=== PATIENT | male | born 1950 | race Caucasian/White ===

== ENCOUNTER 2018-04-06 07:56 | Day surgery (SDC) | payer BC ==
--- NOTE | 2018-04-06 08:57 | RAD REPORT ---
EXAM DESCRIPTION: RAD - Chest Single View - 04/06/2018 8:50 am CLINICAL HISTORY: left heart cath Chest pain. COMPARISON: CHEST SINGLE VIEW dated 10/19/2013; CHEST SINGLE VIEW dated 10/19/2013 FINDINGS: Portable technique limits examination quality. The lungs are grossly clear. The heart is upper limit of normal in size. No displaced fractures. IMPRESSION: No acute intrathoracic process suspected.
[2018-04-06 08:59] LABS: Absolute Lymphocytes (CBC) 0.8 K/uL (0.7-4.9); Absolute Monocytes 0.7 K/uL (0.1-1.3); Absolute Neutrophil 4.8 K/uL (1.8-8.0); Basophils % 0.7 % (0-1.3); Hematocrit 45.6 % (39.6-49.0); Lymphocytes % 12.6 % (15.3-44.8); MPV 8.5 fL (7.6-11.3); Monocytes % 10.3 % (3.3-12.3); RBC Red Blood Cell Count 4.96 M/uL (4.33-5.43)
[2018-04-06] MEDS ORDERED: NA CHLORIDE 0.9% 500 ML ONE (09:01)
[2018-04-06 09:03] LABS: Protime INR 1.09
[2018-04-06 09:08] VITALS: O2SAT 96
[2018-04-06 09:15] LABS: Potassium 4.7 mmol/L (3.5-5.1)
[2018-04-06] MEDS ORDERED: MIDAZOLAM HCL 2 MG/2 ML INJ ONE ×2 (09:39→09:45)
[2018-04-06] MEDS ORDERED: ATROPINE SULF 1 MG/10 ML SYR IV ONE (09:39)
[2018-04-06] MEDS ORDERED: FENTANYL CITR 100 MCG/2 ML ONE (09:39)
[2018-04-06] MEDS ORDERED: NA CHLORIDE 0.9% 0 ML ONE (09:39)
[2018-04-06 10:44] VITALS: TEMP 97.5
[2018-04-06 14:22] VITALS: BP 128/75
--- NOTE | 2018-04-06 20:50 | OP ---
Surgeon: Truman Ponce MD Senior Quality Technician: Feliberto Omer. Total conscious sedation was 30 minutes. Reason For Admission: Outpatient heart catheterization and selective coronary artery angiogram. Procedure: Left heart catheterization, selective coronary artery angiogram. Indication: Atypical chest pain, history of coronary artery disease and a positive Cardiolite. History Of Present Illness: Mr. Mansfield was prepped and draped in the routine sterile fashion, given 2 mg of Versed for IV sedation. Right common femoral artery access obtained with a 6-Guamanian sheath. Angio-Seal was used to close the case. Angiography there was normal. 6-Guamanian Gracy catheters, l eft and right were used respectively to do the coronary angiography. He was found to have an ostial LAD occlusion 100%, 30 to 40% at proximal circumflex, very large dominant RCA with mild plaquing with collateral to the LAD. Complications: There were no complications. Blood Loss: 5 ml. Postoperative Diagnosis: Coronary artery disease, severe. Plan: Plan is for medical therapy. DEEDEE/BASHIR Voice ID: [id number] Report ID: [id number]
== END 2018-04-06 12:15 | disposition home or self-care (01) ==
LOC: CCL 07:56
PROC: B201YZZ Plain Radiography of Multiple Coronary Arteries using Other Contrast (ICD-10-PCS; principal; 2018-04-06)
DX: I25.10 Atherosclerotic heart disease of native coronary artery without angina pectoris (principal); I25.82 Chronic total occlusion of coronary artery; I65.22 Occlusion and stenosis of left carotid artery; I10 Essential (primary) hypertension; E11.9 Type 2 diabetes mellitus without complications; E78.6 Lipoprotein deficiency; Z88.0 Allergy status to penicillin; Z88.8 Allergy status to other drugs, medicaments and biological substances
CPT/HCPCS: 36415; 71045; 80048; 82962; 85025; 85610; 85730; 93454; C1760; C1893; J0583; J2250; J3010

== ENCOUNTER 2020-06-18 12:16 | Inpatient (IN) | payer OTHER ==
--- OUTSIDE RECORDS SUMMARY | 2020-06-18 12:19 | XMS REPORT | Continuity of Care Document ---
:1950 Author Organization [facility] Address [address] [place] [address] Care Team Providers Name Role Phone Unavailable Unavailable Unavailable Problems Condition Condition Condition Status Onset Resolution Last Treating Co mments Source Name Details Category Date Date Treatment Clinician Date Pain, Pain, Diagnosis Active [facility] joint[facility] joint, [facility] - shoulder, shoulder, Raymon ministerio left left l [facility] ent [facility] Impingemen Impingemen Diagnosis Active [facility] t syndrome t syndrome Lary kes - of left of left Memoria shoulder shoulder l [facility] ent Clinics Allergies, Adverse Reactions, Alerts Allergy Allergy Status Severity Reaction(s) Onset Inactive Treating Comm ents Source Name Type Date Date Clinician penicill Adverse Active Info Not [facility] in Reaction Available [facility] - Memoria [facility] Nembutal Adverse Active Info Not [facility] Reaction Available kes [facility] Medications Ordered Filled Start Stop Current Ordering Indication Dosage Frequency Signature Comments Components Source Medication Medication Date Date Medication? Clinician (SIG) Name Name Amlodipine Amlodipine Yes Kwabena [address] [facility] Besylate Besylate 12-16 De Leon [facility] - 00:00: Memoria 00 [facility] ent [facility] Metformin Metformin Yes Kwabena [address] [facility] HCl HCl De Leon with a [facility]ukes - meal [facility] atorvastati atorvastati Yes Kwabena [address] [facility] n n [place] Leon by mouth [facility] - at bedtime [facility] ent [facility] Aspirin Aspirin Yes Kwabena [address] [facility] Leon [facility] - [facility] Levothyroxi Levothyroxi Yes Kwabena [address] [facility] ne Sodium ne Sodium De Leon on an Lary kes - empty Memoria stomach [facility] Lisinopril Lisinopril Yes Kwabena [address] [facility] De Leon Lukes [facility] Metoprolol Metoprolol Yes Kwabena [address] Tartrate Tartrate De Leon [facility] Procedures This patient has no known procedures. Encounters Start End Encounter Admission Attending Care Care Encounter Source Date/Time Date/Time Type Type Clinicians Facility Department ID 2017-12-16 2017-12-16 Outpatient Adriana Palmer [id number] 09:30:00 09:30:00 [facility] Results This patient has no known results.
--- NOTE | 2020-06-18 13:20 | RAD REPORT ---
EXAM DESCRIPTION: RAD - Chest Single View - 06/18/2020 1:08 pm CLINICAL HISTORY: new onset a fib Chest pain. COMPARISON: Chest Single View dated 04/06/2018; CHEST SINGLE VIEW dated 10/19/2013; CHEST SINGLE VIEW dated 10/19/2013 FINDINGS: Portable technique limits examination quality. The lungs are grossly clear. The heart is upper limit of normal in size. No displaced fractures. IMPRESSION: No acute intrathoracic process suspected.
[2020-06-18 13:24] LABS: Absolute Lymphocytes (CBC) 0.9 K/uL (0.7-4.9); Basophils % 0.7 % (0-1.3); Hematocrit 46.6 % (39.6-49.0); Lymphocytes % 9.4 % (15.3-44.8); MPV 8.3 fL (7.6-11.3); RBC Red Blood Cell Count 5.07 M/uL (4.33-5.43)
[2020-06-18 13:30] LABS: Protime INR 1.1
[2020-06-18] MEDS ORDERED: ASPIRIN 81 MG CHEWABLE TABLET ONE (13:40)
[2020-06-18] MEDS ORDERED: ENOXAPARIN 80 MG/0.8 ML SQ ONE (13:40)
[2020-06-18 13:44] LABS: ALT/SGPT 50 U/L (12-78); AST/SGOT 31 U/L (15-37); Alkaline Phosphatase 109 U/L (45-117); BUN Blood Urea Nitrogen 17 mg/dL (7-18); Bicarbonate 27 mmol/L (21-32); Bilirubin Direct 0.4 mg/dL (0-0.2); Bilirubin Total 1.5 mg/dL (0.2-1.0); Glucose Level 266 mg/dL (74-106); NT PRO-BNP 708 pg/mL (<125); Potassium 4.4 mmol/L (3.5-5.1); Protein, Total 7.6 g/dL (6.4-8.2); Sodium Level 139 mmol/L (136-145); Troponin (Emerg Dept Use Only) < 0.02 ng/mL (0.0-0.045)
[2020-06-18] MEDS ORDERED: ACETAMINOPHEN 500 MG TAB PO PRN (14:05)
[2020-06-18] MEDS ORDERED: MORPHINE 4 MG/ML SYR IV PRN (14:05)
--- NOTE | 2020-06-18 15:03 | EDPHYS ---
Physician Documentation [facility] Name: Rhys Mansfield Age: 70 yrs Sex: Male : 1950 Arrival Date: 06/18/2020 Time: 12:17 Bed 3 Private MD: Kathleen Mariscal F ED Physician Ilda Weaver HPI: 06/18 13:17 This 70 yrs old Male presents to ER via Ambulatory with complaints of Chest ma2 Pain. 13:17 The patient or guardian reports chest pain that is located primarily in the substernal ma2 area. Onset: gradually, 1 day(s) ago. Associated signs and symptoms: Pertinent negatives: cough, dizziness, lower extremity pain, lower extremity swelling. Severity of pain: At its worst the pain was moderate in the emergency department the pain has improved. The patient has experienced a previous episode. Historical: - Allergies: 12:31 PENICILLINS; ca1 12:31 BARBITURATES; ca1 - PMHx: 12:31 CAD; Hyperlipidemia; Diabetes - NIDDM; Hypertension; ca1 12:31 Thyroid problem; Angina; ca1 - PSHx: 12:31 None; ca1 - Immunization history:: Client reports receiving the 2nd dose of the Covid vaccine, Date received: May 2020 Flu vaccine is up to date. - Social history:: Smoking status: Patient/guardian denies using tobacco, the patient reports quitting approximately 20 years ago, Patient/guardian denies using alcohol, street drugs, The patient lives with family, with spouse. - Family history:: not pertinent. ROS: 13:17 Constitutional: Negative for fever, chills, and weight loss. ma2 13:17 All other systems are negative. Exam: 13:17 Constitutional: This is a well developed, well nourished patient who is awake, alert, ma2 and in no acute distress. Head/Face: Normocephalic, atraumatic. Eyes: Pupils equal round and reactive to light, extra-ocular motions intact. Lids and lashes normal. Conjunctiva and sclera are non-icteric and not injected. Cornea within normal limits. Periorbital areas with no swelling, redness, or edema. ENT: Nares patent. No nasal discharge, no septal abnormalities noted. Tympanic membranes are normal and external auditory canals are clear. Oropharynx with no redness, swelling, or masses, exudates, or evidence of obstruction, uvula midline. Mucous membranes moist. Neck: Trachea midline, no thyromegaly or masses palpated, and no cervical lymphadenopathy. Supple, full range of motion without nuchal rigidity, or vertebral point tenderness. No Meningismus. Chest/axilla: Normal chest wall appearance and motion. Nontender with no deformity. No lesions are appreciated. Cardiovascular: Regular rate and rhythm with a normal S1 and S2. No gallops, murmurs, or rubs. Normal PMI, no JVD. No pulse deficits. Respiratory: Lungs have equal breath sounds bilaterally, clear to auscultation and percussion. No rales, rhonchi or wheezes noted. No increased work of breathing, no retractions or nasal flaring. Abdomen/GI: Soft, non-tender, with normal bowel sounds. No distension or tympany. No guarding or rebound. No evidence of tenderness throughout. Skin: Warm, dry with normal turgor. Normal color with no rashes, no lesions, and no evidence of cellulitis. MS/ Extremity: Pulses equal, no cyanosis. Neurovascular intact. Full, normal range of motion. Neuro: Awake and alert, GCS 15, oriented to person, place, time, and situation. Cranial nerves II-XII grossly intact. Motor strength 5/5 in all extremities. Sensory grossly intact. Cerebellar exam normal. Normal gait. Vital Signs: 12:20 BP 154 / 91; Pulse 103; Resp 19 S; Temp 97(TE); Pulse Ox 96% on R/A; Weight 102.06 kg ca1 (R); Height 5 ft. 9 in. (175.26 cm) (R); Pain 4/10; 13:29 BP 121 / 80; Pulse 95; Resp 15; Pulse Ox 95% ; Pain 5/10; jl7 14:53 BP 138 / 73; Pulse 111; Resp 17; Pulse Ox 95% ; jl7 17:05 BP 133 / 91; Pulse 135; Resp 19; Pulse Ox 95% ; Pain 0/10; jl7 17:30 Pulse 99; jl7 18:00 BP 122 / 70; Pulse 105; Resp 15; Pulse Ox 96% ; jl7 12:20 Body Mass Index 33.23 (102.06 kg, 175.26 cm) ca1 MDM: 12:49 Patient medically screened. [facility] 13:17 Differential diagnosis: esophagitis, gastritis, gastroesophageal reflux disease (GERD). [facility] HEART Score: History: Highly Suspicious (2), ECG: Non specific repolarization disturbance / LBTB / PM (1), Age: > or = 65 years (2), Risk Factors: > or = 3 Risk factors for atherosclerotic disease (2), Troponin: < or = 1 x Normal Limit (0), Total Score = 3. The patient was given aspirin in the Emergency Department. 15:02 Data reviewed: vital signs, nurses notes. Counseling: I had a detailed discussion with [facility] the patient and/or guardian regarding: the historical points, exam findings, and any diagnostic results supporting the discharge/admit diagnosis, the presence of at least one elevated blood pressure reading (>120/80) during this emergency department visit, lab results. ED course: discussed with dr. venegas. 06/18 12:55 Order name: Basic Metabolic Panel; Complete Time: 14:00 [facility] 06/18 12:55 Order name: CBC with Diff; Complete Time: 14:00 [facility] 06/18 12:55 Order name: LFT's; Complete Time: 14:00 [facility] 06/18 12:55 Order name: Magnesium; Complete Time: 14:00 [facility] 06/18 12:55 Order name: NT PRO-BNP; Complete Time: 14:00 [facility] 06/18 12:55 Order name: PT-INR; Complete Time: 14:00 [facility] 06/18 12:55 Order name: Troponin (emerg Dept Use Only); Complete Time: 14:00 [facility] 06/18 14:09 Order name: Basic Metabolic Panel [facility] 06/18 14:09 Order name: PTT, Activated Partial Thromb [facility] 06/18 14:09 Order name: Creatine Phosphokinase [facility] 06/18 14:09 Order name: Creatine Phosphokinase [facility] 06/18 14:09 Order name: Creatine Phosphokinase [facility] 06/18 14:10 Order name: Creatine Phosphokinase [facility] 06/18 14:10 Order name: Lipid Profile [facility] 06/18 12:34 Order name: EKG; Complete Time: 12:35 [facility] 06/18 12:55 Order name: XRAY Chest (1 view); Complete Time: 14:00 [facility] 06/18 14:09 Order name: CONS Physician Consult [facility] 06/18 14:09 Order name: Echo with Doppler [facility] 06/18 14:10 Order name: Lipid Profile [facility] 06/18 14:10 Order name: Troponin I [facility] 06/18 14:10 Order name: Troponin I [facility] 06/18 14:10 Order name: Troponin I [facility] 06/18 14:10 Order name: Troponin I [facility] 06/18 14:10 Order name: CBC with Automated Diff [facility] 06/18 14:15 Order name: COVID-19 : Document "Date of Symptom Onset" if Symptomatic. bd 06/18 15:12 Order name: CORONAVIRUS [facility] 06/18 16:04 Order name: SARS-COV-[address] [facility] 06/18 12:34 Order name: EKG - Nurse/Tech; Complete Time: 12:49 [facility] 06/18 12:55 Order name: Cardiac monitoring; Complete Time: 13:14 [facility] 06/18 12:55 Order name: IV Saline Lock; Complete Time: 13:14 [facility] 06/18 12:55 Order name: Labs collected and sent; Complete Time: 13:14 [facility] 06/18 12:55 Order name: O2 Per Protocol; Complete Time: 13:14 [facility] 06/18 12:55 Order name: O2 Sat Monitoring; Complete Time: 13:14 [facility] 06/18 14:09 Order name: Heart Healthy [facility] Administered Medications: 13:27 Drug: Aspirin Chewable Tablet 324 mg Route: PO; jl7 14:53 Follow up: Response: No adverse reaction jl7 13:27 Drug: Lovenox (enoxaparin) 80 mg Route: Sub-Q; Site: abdomen; jl7 14:00 Follow up: Response: No adverse reaction jl7 17:08 Drug: Metoprolol 5 mg Route: IVP; Site: right wrist; jl7 17:30 Follow up: Pulse 99 bpm; Response: No adverse reaction; Cardiac rhythm changed jl7 Disposition: 06/18/20 15:03 Hospitalization ordered by Kathleen Mariscal for Observation. Preliminary diagnosis is Other chest pain. - Bed requested for Telemetry/MedSurg (observation). - Status is Observation. jl7 - Condition is Stable. - Problem is new. - Symptoms are unchanged. Signatures: Dispatcher [employer] [facility] Neha Pack RN RN dw Leal, Jahala, RN RN jl7 Ilda Weaver MD MD ma2 Na Thomas RN RN ca1 Corrections: (The following items were deleted from the chart) 17:48 15:03 Hospitalization Ordered by Kathleen Mariscal MD for Observation. Preliminary dw diagnosis is Other chest pain. Bed requested for Telemetry/MedSurg (observation). Status is Observation. Condition is Stable. Problem is new. Symptoms are unchanged. ne2 18:49 17:48 06/18/2020 15:03 Hospitalization Ordered by Kathleen Mariscal MD for Observation. jl7 Preliminary diagnosis is Other chest pain. Bed requested for Telemetry/MedSurg (observation). Status is Observation. Condition is Stable. Problem is new. Symptoms are unchanged. dw
--- NOTE | 2020-06-18 15:03 | ER ---
Nurse's Notes 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 Reports dizziness and ca1 lightheadedness with chest pain. Reports pain with breathing in. Reports HX of CAD. Coronavirus screen: Client denies travel out of the [place] in the last 14 days. At this time, the client does not indicate any symptoms associated with coronavirus-19. Ebola Screen: Patient negative for fever greater than or equal to 101.5 degrees Fahrenheit, and additional compatible Ebola Virus Disease symptoms Patient denies exposure to infectious person. Patient denies travel to an Ebola-affected area in the 21 days before illness onset. No symptoms or risks identified at this time. Initial Sepsis Screen: Does the patient meet any 2 criteria? No. Patient's initial sepsis screen is negative. Does the patient have a suspected source of infection? No. Patient's initial sepsis screen is negative. Risk Assessment: Do you want to hurt yourself or someone else? Patient reports no desire to harm self or others. Onset of symptoms was June 18, 2020. 12:20 Acuity: DL 3 ca1 12:44 Acuity: DL 2 ld1 Historical: - Allergies: 12:31 PENICILLINS; ca1 12:31 BARBITURATES; ca1 - PMHx: 12:31 CAD; Hyperlipidemia; Diabetes - NIDDM; Hypertension; ca1 12:31 Thyroid problem; Angina; ca1 - PSHx: 12:31 None; ca1 - Immunization history:: Client reports receiving the 2nd dose of the Covid vaccine, Date received: May 2020 Flu vaccine is up to date. - Social history:: Smoking status: Patient/guardian denies using tobacco, the patient reports quitting approximately 20 years ago, Patient/guardian denies using alcohol, street drugs, The patient lives with family, with spouse. - Family history:: not pertinent. Screenin:29 Abuse screen: Denies threats or abuse. Denies injuries from another. Nutritional jl7 screening: No deficits noted. Tuberculosis screening: No symptoms or risk factors identified. Fall Risk IV access (20 points). Total Kent Fall Scale indicates No Risk (0-24 pts). Assessment: 13:00 General: Appears in no apparent distress. uncomfortable, Behavior is calm, cooperative, jl7 appropriate for age. Pain: Complains of pain in anterior aspect of left upper chest and mid-sternal area Pain does not radiate. Pain currently is 5 out of 10 on a pain scale. Quality of pain is described as pressure, Pain began 1 hour ago. Is continuous. Neuro: Level of Consciousness is awake, alert, obeys commands, Oriented to person, place, time, situation. Cardiovascular: Patient's skin is warm and dry. Respiratory: Airway is patent Respiratory effort is even, unlabored, Respiratory pattern is regular, symmetrical. Derm: Skin is pink, warm \\T\\ dry. 14:00 Reassessment: Patient appears in no apparent distress at this time. No changes from 7 previously documented assessment. Patient and/or family updated on plan of care and expected duration. Pain level reassessed. Patient is alert, oriented x 3, equal unlabored respirations, skin warm/dry/pink. 15:00 Reassessment: Patient appears in no apparent distress at this time. No changes from 7 previously documented assessment. Patient and/or family updated on plan of care and expected duration. Pain level reassessed. Patient is alert, oriented x 3, equal unlabored respirations, skin warm/dry/pink. 16:30 Reassessment: Dr. Mariscal at bedside. [facility] 17:05 Reassessment: [facility] notified of pt HR, 135, A.Fib on the monitor, VO for 5mg Metoprolol 7 IVP x 1, medicated as ordered. 18:00 Reassessment: HR lowered. 7 Vital Signs: 12:20 BP 154 / 91; Pulse 103; Resp 19 S; Temp 97(TE); Pulse Ox 96% on R/A; Weight 102.06 kg ca1 (R); Height 5 ft. 9 in. (175.26 cm) (R); Pain 4/10; 13:29 BP 121 / 80; Pulse 95; Resp 15; Pulse Ox 95% ; Pain 5/10; jl7 14:53 BP 138 / 73; Pulse 111; Resp 17; Pulse Ox 95% ; jl7 17:05 BP 133 / 91; Pulse 135; Resp 19; Pulse Ox 95% ; Pain 0/10; jl7 17:30 Pulse 99; jl7 18:00 BP 122 / 70; Pulse 105; Resp 15; Pulse Ox 96% ; jl7 12:20 Body Mass Index 33.23 (102.06 kg, 175.26 cm) ca1 ED Course: 12:17 Patient arrived in ED. am2 12:17 Kathleen Mariscal MD is Private Physician. am2 12:29 Triage completed. ca1 12:31 Arm band placed on right wrist. ca1 12:44 Neida Melton, RN is Primary Nurse. ld1 12:44 Primary Nurse role handed off by Neida Melton, MIC jl7 12:44 Mike Boyce, MIC is Primary Nurse. jl7 12:49 Ilda Weaver MD is Attending Physician. ma2 13:00 Patient has correct armband on for positive identification. Placed in gown. Bed in low jl7 position. Call light in reach. Side rails up X 1. traffic monitor specialist on. Pulse ox on. NIBP on. 13:00 Initial lab(s) drawn, by me, sent to lab. Inserted saline lock: 20 gauge in right jl7 wrist, using aseptic technique. Blood collected. Patient maintains SpO2 saturation greater than 95% on room air. 13:07 XRAY Chest (1 view) In Process Unspecified. EDMS 13:32 EKG done, by radioisotope technician. reviewed by Ilda Weaver MD. em1 14:44 COVID swab sent to lab. jl7 14:53 No provider procedures requiring assistance completed. Patient admitted, IV remains in jl7 place. intact, No redness/swelling at site. 15:00 COVID-19 : Document "Date of Symptom Onset" if Symptomatic. Sent. em1 15:03 Kathleen Mariscal MD is Hospitalizing Provider. ma2 17:13 Awaiting bed assignment. jl7 Administered Medications: 13:27 Drug: Aspirin Chewable Tablet 324 mg Route: PO; jl7 14:53 Follow up: Response: No adverse reaction jl7 13:27 Drug: Lovenox (enoxaparin) 80 mg Route: Sub-Q; Site: abdomen; jl7 14:00 Follow up: Response: No adverse reaction jl7 17:08 Drug: Metoprolol 5 mg Route: IVP; Site: right wrist; jl7 17:30 Follow up: Pulse 99 bpm; Response: No adverse reaction; Cardiac rhythm changed jl7 Outcome: 15:03 Decision to Hospitalize by Provider. ma2 18:47 Admitted to Tele accompanied by tech, via wheelchair, room 222, with chart, Report jl7 called to MIC NOLASCO 18:47 Condition: stable 18:47 Discharge instructions given to patient, Instructed on the need for admit, Demonstrated understanding of instructions. 18:49 Patient left the ED. jl7 Signatures: Dispatcher [employer] Parish Bansal em1 Mike Boyce RN RN jl7 Angeles Valencia Mohammad, MD MD ma2 Na Thomas RN RN ca1 Neida Melton RN RN ld1
[2020-06-18] MEDS: INSULIN -REGULAR HUMAN 50 UNIT/0.5 ML ML SQ SCH ×2 (16:30→21:07)
[2020-06-18] MEDS ORDERED: METOPROLOL TARTRATE 5 MG/5 ML INJ IV ONE (17:23)
[2020-06-18] MEDS: ENOXAPARIN 80 MG/0.8 ML SQ SCH (21:08)
[2020-06-18 21:16] LABS: Creatine Phosphokinase 54 U/L (39-308); Troponin I < 0.02 ng/mL (0.0-0.045)
[2020-06-19 00:49] VITALS: BMI 33.2
[2020-06-19 06:13] LABS: Basophils % 0.5 % (0-1.3); Hematocrit 43.6 % (39.6-49.0); Lymphocytes % 10.1 % (15.3-44.8); MPV 8.2 fL (7.6-11.3); RBC Red Blood Cell Count 4.77 M/uL (4.33-5.43)
[2020-06-19 06:28] LABS: Potassium 4.2 mmol/L (3.5-5.1)
[2020-06-19 07:04] LABS: Creatine Phosphokinase 43 U/L (39-308); Troponin I < 0.02 ng/mL (0.0-0.045)
[2020-06-19] MEDS: INSULIN -REGULAR HUMAN 50 UNIT/0.5 ML ML SQ SCH ×4 (07:30→20:37)
[2020-06-19] MEDS: ASPIRIN EC 81 MG TAB PO SCH (09:29)
[2020-06-19] MEDS: ENOXAPARIN 80 MG/0.8 ML SQ SCH ×2 (09:29→20:37)
[2020-06-19] MEDS ORDERED: DIGOXIN 0.25 MG TABLET PO ONE (11:03)
--- NOTE | 2020-06-19 12:55 | EKG ---
Test Date: 2020-06-18 Test Time: 12:39:44 Dock Clerk: NINFA MEASUREMENT RESULTS: Intervals: Rate: 94 CT: QRSD: 98 QT: 352 QTc: 440 [place]: P: CT: QRS: 19 T: 6 INTERPRETIVE STATEMENTS: Atrial fibrillation Abnormal ECG Compared to ECG 10/19/2013 07:04:25 Sinus rhythm no longer present Electronically Signed On 06-19-20 12:52:48 CDT by Truman Ponce
[2020-06-19] MEDS: METFORMIN HCL 500 MG TAB PO SCH (13:00)
--- NOTE | 2020-06-19 13:39 | ECHO ---
HEIGHT: 5 ft 9 in WEIGHT: 225 lb 0 oz DATE OF STUDY: 06/19/[address]: Ilda Weaver MD 2-DIMENSIONAL: YES M.MODE: YES DOPPLER: YES COLOR FLOW: YES TDS: PORTABLE: DEFINITY: BUBBLE STUDY: DIAGNOSIS: CHEST PAIN CARDIAC HISTORY: CATHERIZATION: NO SURGERY: NO PROSTHETIC VALVE: NO PACEMAKER: NO MEASUREMENTS (cm) DIASTOLIC (NORMALS) SYSTOLIC (NORMALS) IVSd 1.0 (0.6-1.2) LA Diam 3.5 (1.9-4.0) LVEF 51% LVIDd 4.7 (3.5-5.7) LVIDs 3.5 (2.0-3.5) %FS 26% LVPWd 1.0 (0.6-1.2) Ao Diam 3.4 (2.0-3.7) 2 DIMENSIONAL ASSESSMENT: RIGHT ATRIUM: NORMAL LEFT ATRIUM: NORMAL RIGHT VENTRICLE: NORMAL LEFT VENTRICLE: NORMAL TRICUSPID VALVE: NORMAL MITRAL VALVE: NORMAL PULMONIC VALVE: NORMAL AORTIC VALVE: NORMAL PERICARDIAL EFFUSION: NONE AORTIC ROOT: NORMAL LEFT VENTRICULAR WALL MOTION: NORMAL EJECTION FRACTION DOPPLER/COLOR FLOW: NORMAL COMMENTS: ATRIAL FIBRILLATION. NORMAL OVERALL EJECTION FRACTION. NORMAL LEFT ATRIAL SIZE. NO THROMBUS. TECHNOLOGIST: CAITLIN ANGEL
[2020-06-19 14:19] LABS: Creatine Phosphokinase 53 U/L (39-308); Troponin I < 0.02 ng/mL (0.0-0.045)
--- NOTE | 2020-06-19 15:22 | SS ---
History Of Present Illness: The patient is a 70-year-old male with history of multiple medical probl ems including coronary artery disease and diabetes. Have been working outdoors, lifting and pushing heavy objects for a whole day and then after that while he was sitting in the chair, he started feeli ng the chest pain pointing to his sternal area and he relates that this chest pain is like a dull ach e and specially increased with taking a deep breath. He came to the emergency room because of his hi story of coronary artery disease and his high risk for that, he was admitted for observation. The pa inga had no palpitation. No nausea, no vomiting, no increased work of breath and no other complaint s. Review of Systems: Cardiovascular: As mentioned. No palpitation. No dizziness. No other complaints. Respiratory: No complaints. Genitourinary: No complaint. Neurological: No complaint. Skeletomuscular: No complaint. Past Medical History: 1.Coronary artery disease. 2.Hyperlipidemia. 3.Type 2 diabetes. 4.Hypertension. Social History: Denies smoking, alcohol, or drug abuse history. Family History: Noncontributing. Medications: Include amlodipine 10 mg p.o. daily, aspirin 81 mg p.o. daily, Lipitor 40 mg p.o. daily , levothyroxine 25 mcg p.o. daily, metformin 1000 mg p.o. b.i.d. and metoprolol 25 mg p.o. b.i.d. Allergies: BARBITURATES AND PENICILLIN. Physical Examination: General: The patient is sitting, in no acute distress. Vital Signs: Blood pressure 147/87, pulse is 130, temperature 97.7. Heart: Tachycardic. Regular rate. Chest: Clear to auscultation. Abdomen: Soft, nontender. No hepatosplenomegaly. Bowel sounds are normoactive. Extremities: No edema. No cyanosis. Peripheral pulses are felt. Neurologic: Alert, oriented, nonfocal. Grossly intact. Chest wall: Showed no tenderness. Diagnostic Studies: Chest x-ray, no acute pathology is. EKG reported to me by ER physician, no acut e ischemic changes. CBC nonrevealing. BUN 15, creatinine 0.91, GFR 83. Blood sugar fingersticks, 2 77 and 177. Troponin less than 0.02. COVID test negative. Assessment And Plan: Substernal chest pain in the patient with a high risk for coronary artery disea se, being admitted, monitored and put him on his home medications, on his aspirin and on Lovenox. Ca rdiology has been asked to see the patient and evaluate for any further cardiac intervention. We als o put him on his home medicines, follow his blood sugar fingersticks, put him on sliding scale. If i t is okay with Cardiology, then we are going to go ahead and if there is no other intervention inpati ent for this gentleman, then we will go ahead and discharge him with Cardiology recommendations on hi s medications and if there is any outpatient further workup. I think that the patient's chest pain i s more related to his skeletomuscular system, especially he sees that with taking deep breaths. Jose ochondritis will also be involved in that. Look orders for details. MFS/MODL Voice ID: [id number] Report ID: [id number]
[2020-06-19] MEDS: SOTALOL HCL 80 MG TAB PO SCH (17:56)
[2020-06-19] MEDS: METOPROLOL TAR 25 MG TAB PO SCH (20:37)
[2020-06-19] MEDS ORDERED: ATORVASTATIN 40 MG TAB PO SCH (21:00)
[2020-06-20 01:20] VITALS: O2SAT 95
[2020-06-20] MEDS: SOTALOL HCL 80 MG TAB PO SCH ×2 (06:18→16:35)
[2020-06-20] MEDS ORDERED: LEVOTHYROXINE SOD 0.025 MG TAB PO SCH (06:30)
[2020-06-20] MEDS: INSULIN -REGULAR HUMAN 50 UNIT/0.5 ML ML SQ SCH ×2 (07:30→11:30)
[2020-06-20] MEDS: METFORMIN HCL 500 MG TAB PO SCH ×2 (08:41→16:35)
[2020-06-20] MEDS: ASPIRIN EC 81 MG TAB PO SCH (08:41)
[2020-06-20] MEDS: METOPROLOL TAR 25 MG TAB PO SCH (08:41)
[2020-06-20] MEDS: ENOXAPARIN 80 MG/0.8 ML SQ SCH (08:42)
[2020-06-20] MEDS ORDERED: ASPIRIN EC 81 MG TAB PO SCH (09:00)
[2020-06-20] MEDS ORDERED: AMLODIPINE 10 MG TAB PO SCH (09:00)
[2020-06-20 13:13] VITALS: BP 138/94; TEMP 97.8
--- NOTE | 2020-06-20 17:11 | PN ---
Subjective: The patient has no new complaints. No chest pain. No increased shortness of breath. Objective: Vital Signs: Blood pressure 138/94, pulse 83, temperature 97.8. Heart: Regular rate and rhythm. Chest: Clear to auscultation. Abdomen: Soft, benign. Neurological: Grossly intact. Laboratory Data: The patient's EKG showed atrial fibrillation. His echo showed atrial fibrillation with normal left ventricular ejection fraction. Assessment And Plan: Atrial fibrillation, new diagnosis for this patient. He is still in atrial fib rillation. He was put on Betapace by Cardiology. Plan is to change into sinus rhythm with chemicals or if needed by cardioversion. Meanwhile, continue current treatment. The patient is on Lovenox al so, and we will continue to monitor his blood sugar fingersticks and put him on sliding scale and alma p that. Look orders for details. MFS/MODL Voice ID: [id number] Report ID: [id number]
== END 2020-06-20 17:20 | disposition home or self-care (01) | DRG 310 ==
LOC: ER 12:16 → ERHOLD 14:05 → 2ND 18:17 → OBSVTOIN 06-20 07:49
PROVIDERS: ADMIT Internal Medicine; ATTEND Internal Medicine
DX: I48.91 Unspecified atrial fibrillation (principal); I10 Essential (primary) hypertension; E78.5 Hyperlipidemia, unspecified; I25.10 Atherosclerotic heart disease of native coronary artery without angina pectoris; E11.9 Type 2 diabetes mellitus without complications; Z79.82 Long term (current) use of aspirin; Z79.890 Hormone replacement therapy; Z79.84 Long term (current) use of oral hypoglycemic drugs; Z79.899 Other long term (current) drug therapy; Z88.8 Allergy status to other drugs, medicaments and biological substances; Z88.0 Allergy status to penicillin; Z87.891 Personal history of nicotine dependence; Z20.822 Contact with and (suspected) exposure to COVID-19
CPT/HCPCS: 36415; 71045; 80048; 80061; 80076; 82550; 82947; 83735; 83880; 84484; 85025; 85610; 85730; 93005; 93306; 96372; 96374; 99285; G0378; U0003

== ENCOUNTER 2022-02-09 13:48 | Emergency (ER) | payer OTHER ==
[2022-02-09] MEDS ORDERED: SUCCINYLCHOLINE 20 MG/ML (10 ML) IV ONE (13:49)
[2022-02-09] MEDS ORDERED: ETOMIDATE 20 MG/10 ML VIAL IV ONE (13:49)
--- OUTSIDE RECORDS SUMMARY | 2022-02-09 13:51 | XMS REPORT | Continuity of Care Document ---
:1950 Author Organization [facility] t Address [address] [place] [address] Care Team Providers Name Role Phone Unavailable Unavailable Unavailable Problems Condition Condition Condition Status Onset Resolution Last Treating Co mments Source Name Details Category Date Date Treatment Clinician Date Pain, Pain, Diagnosis Active Common joint, joint, Spirit shoulder, shoulder, - CH I left left [facility] Impingemen Impingemen Diagnosis Active Common t syndrome t syndrome Sp rona of left of left - [facility] shoulder shoulder [facility] Allergies, Adverse Reactions, Alerts Allergy Allergy Status Severity Reaction(s) Onset Inactive Treating Comm ents Source Name Type Date Date Clinician penicill Adverse Active Info Not Commo n in Reaction Available [facility] Nembutal Adverse Active Info Not Commo n Reaction Available [facility] Medications Ordered Filled Start Stop Current Ordering Indication Dosage Frequency Signature Comments Components Source Medication Medication Date Date Medication? Clinician (SIG) Name Name Amlodipine Amlodipine Yes Kwabena 1 tablet Common Besylate Besylate 12-16 [place] Spiri t 00:00: - [facility]I 00 [facility] Metformin Metformin Yes Kwabena 1 tablet Common HCl HCl [place] with a Spirit meal [facility] atorvastati atorvastati Yes Kwabena 1 tablet Common n n [place] by mouth Spirit at bedtime [facility] Aspirin Aspirin Yes Kwabena [address] [facility] Levothyroxi Levothyroxi Yes Kwabena 1 tablet Common ne Sodium ne Sodium De Leon on an Sp rona empty - [facility]I stomach in [facility] Lisinopril Lisinopril Yes Kwabena 1 tablet Common De Leon [facility] Metoprolol Metoprolol Yes Kwabena 5 ml C ommon Tartrate Tartrate [facility] Procedures This patient has no known procedures. Encounters Start End Encounter Admission Attending Care Care Encounter Source Date/Time Date/Time Type Type Clinicians Facility Department ID 2017-12-16 2017-12-16 Outpatient Adriana Palmer [id number] Common 09:30:00 09:30:00 [facility] Results This patient has no known results.
[2022-02-09] MEDS ORDERED: MIDAZOLAM HCL 2 MG/2 ML INJ ONE ×3 (14:10→15:17)
[2022-02-09 14:34] LABS: Absolute Lymphocytes (CBC) 1.3 K/uL (0.7-4.9); Hematocrit 44.5 % (39.6-49.0); Lymphocytes % 13.2 % (15.3-44.8); MCV 99.6 fL (80-100); MPV 7.8 fL (7.6-11.3); RBC Red Blood Cell Count 4.47 M/uL (4.33-5.43)
[2022-02-09] MEDS ORDERED: propofoL 1,000 MG/100 ML VIAL IV ONE ×2 (14:39→17:31)
[2022-02-09 14:40] LABS: Protime INR 2.95
[2022-02-09 15:01] LABS: Urine Blood Trace-intact (Negative); Urine Glucose Negative (Negative); Urine Protein 2+ (Negative); Urine Specific Gravity >=1.030 (1.005-1.030)
[2022-02-09 15:30] LABS: Urine Mucus Slight /HPF (None Seen); Urine RBC <5 /HPF (None Seen)
--- NOTE | 2022-02-09 15:37 | ER ---
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 13:57 Coronavirus screen: Vaccine status: Patient reports receiving the 2nd dose of the covid ph vaccine. Ebola Screen: No symptoms or risks identified at this time. Risk Assessment: Do you want to hurt yourself or someone else? Patient reports no desire to harm self or others. Onset of symptoms was February 09, 2022. 13:57 Method Of Arrival: Wheelchair ph 13:57 Acuity: DL 1 ph 16:59 Initial Sepsis Screen: Does the patient meet any 2 criteria? No. Patient's initial jd3 sepsis screen is negative. Does the patient have a suspected source of infection? No. Patient's initial sepsis screen is negative. 16:59 Care prior to arrival: None. Compressions began at 13:57. jd3 Triage Assessment: 13:55 General: Appears distressed, Behavior is cooperative. Pain: Denies pain. Respiratory: ph Reports shortness of breath. Derm: Skin is diaphoretic, Skin is dusky, pale. Historical: - Allergies: 14:09 BARBITURATES; ph 14:09 PENICILLINS; ph - Home Meds: 16:50 amlodipine 10 mg tab 1 tab once daily [Active]; levothyroxine 25 mcg cap 1 cap every jd3 other day [Active]; glimepiride 1 mg Oral tab 1 tab once daily [Active]; atorvastatin 40 mg oral tab 1 tab once daily [Active]; metformin 1,000 mg Oral tab 1 tab 2 times per day [Active]; sotalol 120 mg Oral tab 1 tab 2 times per day [Active]; Xarelto 20 mg oral tab 1 tab once daily [Active]; aspirin 81 mg Oral cap 1 cap once daily [Active]; Flonase Nasal [Active]; Claritin Oral [Active]; - PMHx: 14:09 Angina; CAD; Diabetes - NIDDM; Hyperlipidemia; Hypertension; Thyroid problem; Atrial ph fibrillation; - Immunization history:: Adult Immunizations unknown. - Social history:: Smoking status: unknown. Screenin:59 Abuse screen: Denies threats or abuse. Nutritional screening: No deficits noted. jd3 Tuberculosis screening: No symptoms or risk factors identified. Fall Risk IV access (20 points). Ambulatory Aid- None/Bed Rest/Nurse Assist (0 pts). Gait- Normal/Bed Rest/Wheelchair (0 pts) Mental Status- Oriented to own ability (0 pts). Total Kent Fall Scale indicates No Risk (0-24 pts). Assessment: 14:00 General: Appears distressed, Behavior is restless. Pain: Unable to use pain scale. jd3 Patient is unresponsive. Neuro: Level of Consciousness is confused, lethargic, Oriented to none. Cardiovascular: Heart tones present Rhythm is atrial fibrillation with rapid ventricular response. Respiratory: Respiratory effort is labored, gasping, weak, Breath sounds are diminished bilaterally. GI: No signs and/or symptoms were reported involving the gastrointestinal system. : No signs and/or symptoms were reported regarding the genitourinary system. EENT: No signs and/or symptoms were reported regarding the EENT system. Derm: Skin is intact, Skin is clammy, diaphoretic, Skin is dusky, pale, Skin temperature is cool. Musculoskeletal: No signs and/or symptoms reported regarding the musculoskeletal system. 14:25 Reassessment: states that patient has been c/o shortness of breath since ss yesterday, but became much worse today. 14:25 CPR assessment: Ambu ventilation. jd3 15:00 General: Appears comfortable, Behavior is orally intubated. Pain: Unable to use pain jd3 scale. Patient is intubated. Neuro: Owens Agitation-Sedation Scale (RASS): -4 Deep sedation Level of Consciousness is intubated. Oriented to none. Cardiovascular: Heart tones present Capillary refill < 3 seconds Patient's skin is warm and dry. Rhythm is atrial fibrillation. Respiratory: Airway via oral intubation Respiratory effort is relaxed, Breath sounds are diminished bilaterally. Breath sounds with wheezes bilaterally. GI: No signs and/or symptoms were reported involving the gastrointestinal system. : No signs and/or symptoms were reported regarding the genitourinary system. EENT: No signs and/or symptoms were reported regarding the EENT system. Derm: Skin is intact, Skin is dry, Skin is normal, Skin temperature is warm. Musculoskeletal: No signs and/or symptoms reported regarding the musculoskeletal system. 15:30 Reassessment: Patient appears in no apparent distress at this time. No changes from jd3 previously documented assessment. Patient and/or family updated on plan of care and expected duration. Pain level reassessed. 16:00 Reassessment: Patient appears in no apparent distress at this time. No changes from jd3 previously documented assessment. Patient and/or family updated on plan of care and expected duration. Pain level reassessed. 16:30 Reassessment: Patient appears in no apparent distress at this time. No changes from jd3 previously documented assessment. Patient and/or family updated on plan of care and expected duration. Pain level reassessed. 17:00 Cardiac rhythm is A-fib. jd3 17:00 Reassessment: Patient appears in no apparent distress at this time. No changes from jd3 previously documented assessment. Patient and/or family updated on plan of care and expected duration. Pain level reassessed. 17:15 Reassessment: Patient appears in no apparent distress at this time. No changes from jd3 previously documented assessment. Patient and/or family updated on plan of care and expected duration. Pain level reassessed. 17:30 Reassessment: Patient appears in no apparent distress at this time. No changes from jd3 previously documented assessment. Patient and/or family updated on plan of care and expected duration. Pain level reassessed. 17:45 Reassessment: Patient appears in no apparent distress at this time. No changes from jd3 previously documented assessment. Patient and/or family updated on plan of care and expected duration. Pain level reassessed. 18:00 Reassessment: Patient appears in no apparent distress at this time. No changes from jd3 previously documented assessment. Patient and/or family updated on plan of care and expected duration. Pain level reassessed. report given to [facility]. 18:21 Reassessment: report given to Risa HAILE at [facility]. jd3 Vital Signs: 14:10 BP 180 / 122; Pulse 135; Pulse Ox 51% on Non-rebreather mask; ss 14:12 BP 134 / 85; Pulse 121; Pulse Ox 58% on Non-rebreather mask; ss 14:15 BP 145 / 93; Pulse 119; Pulse Ox 100% on ETT ambu; ss 14:19 BP 118 / 84; Pulse 114; ss 15:15 BP 121 / 77; Pulse 102; Resp 22 A; Pulse Ox 97% on ETT vent; jd3 15:30 BP 110 / 66; Pulse 100; Resp 22 A; Pulse Ox 98% on ETT vent; jd3 15:47 BP 125 / 82; Pulse 102; Resp 15 A; Temp 97.5(A); Pulse Ox 98% on ETT vent; Weight jd3 136.08 kg (R); 16:00 BP 109 / 71; Pulse 101; Resp 22 A; Pulse Ox 98% on ETT vent; jd3 16:15 BP 117 / 81; Pulse 97; Resp 22; Pulse Ox 99% on ETT vent; jd3 16:30 BP 112 / 80; Pulse 94; Resp 22; Pulse Ox 99% on ETT vent; jd3 16:45 BP 114 / 77; Pulse 99; Resp 22; Pulse Ox 100% on ETT vent; jd3 17:00 BP 112 / 67; Pulse 94; Resp 22; Pulse Ox 100% on ETT vent; jd3 17:15 BP 109 / 64; Pulse 89; Resp 20; Pulse Ox 100% on ETT vent; jd3 17:30 BP 129 / 64; Pulse 91; Resp 18; Pulse Ox 100% on ETT vent; jd3 17:45 BP 123 / 77; Pulse 89; Resp 19; Pulse Ox 100% on ETT vent; jd3 ED Course: 13:57 Patient arrived in ED. eb 14:05 Inserted saline lock: 18 gauge in left EJ, using aseptic technique. ,using aseptic ss technique. Insertion by Dr. Emery Diehl. 14:08 Inserted saline lock: 20 gauge in right hand, using aseptic technique. ss 14:09 Triage completed. ph 14:09 Arm band placed on Patient placed in an exam room, on a stretcher, on oxygen, on ph phototypesetting equipment monitor, on pulse oximetry. 14:10 Inserted saline lock: 18 gauge in left antecubital area, using aseptic technique. Blood ss collected. 14:12 Assisted provider with intubation using 7.5 mm ETT via oral route. Set up intubation ss tray. Intubated by Elton Diehl MD Placement verified by CO2 detector w/ + color change, auscultating bilateral breath sounds, Patient tolerated sedated. 14:15 Veronica cath inserted, using sterile technique, 16 Fr.. ss 14:16 Elton Diehl MD is Attending Physician. [facility] 14:41 Assisted provider with central line placement. Set up central line tray. Triple lumen ss line placed in right femoral. Line placed by Elton Diehl MD Placement verified by blood return, Dressed with 4X4s, Tape, Tegaderm, Blood was collected. Patient tolerated sedated. 15:[address] Diehl with Spencer Cordero from the [facility] eb Center. 15:33 XRAY Chest (1 view) In Process Unspecified. EDMS 15:33 CXR XRAY In Process Unspecified. EDMS 15:39 CT Traumagram (Head C Spine CAP wo con) In Process Unspecified. EDMS 15:[address] Diehl with Sandrine from the [facility]/. 15:46 Diallo Armenta, RN is Primary Nurse. j 16:02 sandrine from the [facility] called to decline the patient in eb transfer due to [facility] being at capacity. 16:10 connected the commercial truck driver check writer salesperson for [facility] with Dr. Diehl for patient eb transfer consultation. 16:20 COVID-19/FLU A+B Sent. kc6 16:59 Patient has correct armband on for positive identification. Placed in gown. Bed in low jd3 position. Call light in reach. Side rails up X2. Adult w/ patient. Client placed on continuous cardiac and pulse oximetry monitoring. NIBP monitoring applied. property assessment monitor on. Pulse ox on. NIBP on. Warm blanket given. 17:04 administrative approval given by Spencer Cordero/ patient has been accepted to [facility] delilah [id number]/ Dr. López has accepted the patient in transfer/ report to be called to [phone]. 18:01 Patient transferred, IV remains in place. j Administered Medications: 14:11 Drug: Etomidate 20 mg Route: IVP; Site: left antecubital; ss 15:00 Follow up: Response: No adverse reaction jd3 14:11 Drug: Midazolam 4 mg Route: IVP; Site: left antecubital; ss 15:00 Follow up: Response: No adverse reaction jd3 14:12 Drug: Succinylcholine 120 mg Route: IVP; Site: left antecubital; ss 15:00 Follow up: Response: No adverse reaction jd3 14:25 Drug: Midazolam 4 mg {Note: Administered by Laurel Armenta RN.} Route: IVP; Site: left ss antecubital; 15:00 Follow up: Response: No adverse reaction jd3 14:30 Drug: Propofol 5 mcg/kg/min Route: IV; Rate: calculated rate; Site: left antecubital; jd3 14:35 Follow up: Response: RASS: Alert and Calm (0); Rate change 7 mcg/kg/min jd3 14:40 Follow up: Response: RASS: Alert and Calm (0); Rate change 9 mcg/kg/min jd3 14:45 Follow up: Response: RASS: Alert and Calm (0); Rate change 11 mcg/kg/min jd3 14:50 Follow up: Response: RASS: Alert and Calm (0); Rate change 13 mcg/kg/min jd3 14:55 Follow up: Response: RASS: Alert and Calm (0); Rate change 15 mcg/kg/min jd3 15:00 Follow up: Response: RASS: Alert and Calm (0); Rate change 17 mcg/kg/min jd3 15:05 Follow up: Response: RASS: Alert and Calm (0); Rate change 19 mcg/kg/min jd3 15:10 Follow up: Response: RASS: Alert and Calm (0); Rate change 21 mcg/kg/min jd3 15:15 Follow up: Response: RASS: Drowsy (-1); Rate change 23 mcg/kg/min jd3 15:20 Follow up: Response: RASS: Light sedation (-2); Rate change 25 mcg/kg/min jd3 18:00 Follow up: Response: RASS: Light sedation (-2); IV Status: Infusion continued upon [facility] transfer 15:20 Drug: SOLU-Medrol (methylPrednisoLONE) 125 mg Route: IVP; Site: right hand; jd3 16:20 Follow up: Response: No adverse reaction jd3 15:21 Drug: ProTONIX (pantoprazole) 40 mg Route: IVP; Site: right hand; jd3 16:00 Follow up: Response: No adverse reaction jd3 15:21 Drug: Midazolam 4 mg Route: IVP; Site: right hand; jd3 16:20 Follow up: Response: No adverse reaction jd3 16:21 Drug: Meropenem 1 grams Route: IV; Rate: per protocol; Site: right hand; jd3 17:00 Follow up: Response: No adverse reaction; IV Status: Completed infusion jd3 16:45 Drug: NS 0.9% 500 ml Route: IV; Rate: bolus; Site: right hand; kc6 17:45 Follow up: Response: No adverse reaction; IV Status: Completed infusion jd3 17:17 Drug: NS 0.9% 1000 ml Route: IV; Rate: 125 ml/hr; Site: left antecubital; jd3 18:00 Follow up: Response: No adverse reaction; IV Status: Infusion continued upon transfer jd3 Medication: 14:10 VIS not applicable for this client. ss Outcome: 15:00 Outcome Resuscitation successful jd3 15:00 Transferred by ground EMS to [facility], Transfer form completed. jd3 X-rays sent w/ patient. 15:00 Condition: stable 15:37 ER care complete, transfer ordered by . tod 18:02 Patient left the ED. jd3 Signatures: Dispatcher [employer] EDPA Elton Diehl MD MD cha Smirch, Shelby, RN RN ss Patty Leavitt ph D, RN RNavies, Jonathon, RN RN jd3 Botello, Elizabeth eb Campbell, Kaitlyn, RN RN kc6 Corrections: (The following items were deleted from the chart) 14:09 14:07 Chief complaint: ph ph 14:29 14:08 Inserted saline lock: 18 gauge in right hand, using aseptic technique. ss ss 15:48 15:47 BP 125 / 82; Pulse 102bpm; Resp 15bpm; Assisted; Pulse Ox 98% ET / Ventilator; jd3 Temp 97.5F Axillary; jd3 18:30 14:35 Rate change 7 mcg/kg/min jd3 jd3 18:30 14:40 Rate change 9 mcg/kg/min jd3 jd3 18:30 18:29 Response: RASS: Drowsy (-1); Rate change 7 mcg/kg/min jd3 jd3 18:32 14:45 Response: RASS: Alert and Calm (0); Rate change 10 mcg/kg/min jd3 jd3 18:33 14:50 Response: RASS: Alert and Calm (0); Rate change 12 mcg/kg/min jd3 jd3 18:35 15:05 Response: RASS: Alert and Calm (0); Rate change 17 mcg/kg/min jd3 jd3
--- NOTE | 2022-02-09 15:37 | EDPHYS ---
Physician Documentation [facility] Name: Rhys Mansfield Age: 72 yrs Sex: Male : 1950 Arrival Date: 02/09/2022 Time: 13:57 Bed 5 Private MD: ED Physician Elton Diehl HPI: 02/09 15:27 This 72 yrs old Male presents to ER via Wheelchair with complaints of tod Shortness Of Breath. 15:27 The patient has shortness of breath at rest, with light activity. Onset: The tod symptoms/episode began/occurred 2 day(s) ago. Duration: The symptoms are continuous, and are steadily getting worse. The patient's shortness of breath has no apparent modifying factors. Associated signs and symptoms: Pertinent positives: dizziness, nausea. Severity of symptoms: At their worst the symptoms were moderate in the emergency department the symptoms are worse markedly. Unable to obtain HPI due to obtunded state. It is unknown whether or not the patient has had similar symptoms in the past. Historical: - Allergies: 14:09 BARBITURATES; ph 14:09 PENICILLINS; ph - Home Meds: 16:50 amlodipine 10 mg tab 1 tab once daily [Active]; levothyroxine 25 mcg cap 1 cap every jd3 other day [Active]; glimepiride 1 mg Oral tab 1 tab once daily [Active]; atorvastatin 40 mg oral tab 1 tab once daily [Active]; metformin 1,000 mg Oral tab 1 tab 2 times per day [Active]; sotalol 120 mg Oral tab 1 tab 2 times per day [Active]; Xarelto 20 mg oral tab 1 tab once daily [Active]; aspirin 81 mg Oral cap 1 cap once daily [Active]; Flonase Nasal [Active]; Claritin Oral [Active]; - PMHx: 14:09 Angina; CAD; Diabetes - NIDDM; Hyperlipidemia; Hypertension; Thyroid problem; Atrial ph fibrillation; - Immunization history:: Adult Immunizations unknown. - Social history:: Smoking status: unknown. ROS: 15:29 Constitutional: tod 15:29 Respiratory: Positive for shortness of breath, at rest. 15:29 Neuro: Positive for altered mental status. 15:29 Unable to obtain ROS due to obtunded state. Exam: 15:29 Constitutional: The patient appears obese, in obvious distress, severely distressed. tod 15:29 Head/face: Exam is negative for 15:29 Cardiovascular: Rate: tachycardic, actual rate is 130 bpm, Rhythm: irregular, irregularly irregular, Pulses: Pulses are 4+ in bilateral radial, brachial, femoral, popliteal, posterior tibial and and dorsalis pedis arteries.. Edema: 2+ edema to level of left midcalf and right midcalf, JVD: is noted bilaterally, to the angle of the jaw. 15:29 ECG was reviewed by the Attending Physician. 15:32 ECG was reviewed by the Attending Physician. tod 16:49 Musculoskeletal/extremity: DVT Exam: no pain, no tenderness, negative Homans' sign tod noted on exam, no appreciated bluish discoloration, no erythema, no increased warmth, swelling. Vital Signs: 14:10 BP 180 / 122; Pulse 135; Pulse Ox 51% on Non-rebreather mask; ss 14:12 BP 134 / 85; Pulse 121; Pulse Ox 58% on Non-rebreather mask; ss 14:15 BP 145 / 93; Pulse 119; Pulse Ox 100% on ETT ambu; ss 14:19 BP 118 / 84; Pulse 114; ss 15:15 BP 121 / 77; Pulse 102; Resp 22 A; Pulse Ox 97% on ETT vent; jd3 15:30 BP 110 / 66; Pulse 100; Resp 22 A; Pulse Ox 98% on ETT vent; jd3 15:47 BP 125 / 82; Pulse 102; Resp 15 A; Temp 97.5(A); Pulse Ox 98% on ETT vent; Weight [facility] 136.08 kg (R); 16:00 BP 109 / 71; Pulse 101; Resp 22 A; Pulse Ox 98% on ETT vent; jd3 16:15 BP 117 / 81; Pulse 97; Resp 22; Pulse Ox 99% on ETT vent; jd3 16:30 BP 112 / 80; Pulse 94; Resp 22; Pulse Ox 99% on ETT vent; jd3 16:45 BP 114 / 77; Pulse 99; Resp 22; Pulse Ox 100% on ETT vent; jd3 17:00 BP 112 / 67; Pulse 94; Resp 22; Pulse Ox 100% on ETT vent; jd3 17:15 BP 109 / 64; Pulse 89; Resp 20; Pulse Ox 100% on ETT vent; jd3 17:30 BP 129 / 64; Pulse 91; Resp 18; Pulse Ox 100% on ETT vent; jd3 17:45 BP 123 / 77; Pulse 89; Resp 19; Pulse Ox 100% on ETT vent; jd3 Procedures: 16:49 Central Line: the site was prepped with Betadine, in sterile fashion, a triple lumen tod catheter was inserted, in the right femoral vein, in 3 attempts. placement was verified, failed, the site was dressed with using sterile technique, 5.0 prolene figure 8 suture, the patient tolerated the procedure, well. 17:37 Intubation: Intubated orally using # 4 Noemy blade with 7.5 mm ETT. was successful tod on first attempt. Ventilated with Ambu bag. Tube secured at right side of mouth measured 25 cm at lip. Placement verified by CXR, CO2 detector with (+) color change, auscultating bilateral breath sounds, O2 saturation after procedure was 100 %. Patient tolerated well. MDM: 14:56 Patient medically screened. tod 15:33 Differential diagnosis: Chronic Obstructive Pulmonary Disease respiratory arrest, tod asphyxiation, pulmonary edema. Antibiotic administration: merrem. Differential Diagnosis altered mental status, sepsis, flu. The patient's Wells Deep Vein Thrombosis Score was calculated as follows: Heart Rate >100 BPM (1.5 Pts) Total Score: 0-2 Pts- Low Risk. The patient's pulmonary embolism risk score was calculated as follows: the patients heart rate is greater than 100 beats per minute (1.5 Pts) Total Score: 0-2 points. This patient was found to be at low risk for a pulmonary embolism by using the Well's assessment criteria. Immunization status: Pneumococcal vaccine: Influenza vaccine: Data reviewed: vital signs, nurses notes, lab test result(s), EKG, radiologic studies, CT scan, plain films. Data interpreted: equipment monitor phototypesetting: rate is 146 beats/min, rhythm is regular, Pulse oximetry: on room air is 55 %. Test interpretation: by ED physician or midlevel provider: ECG, plain radiologic studies. Counseling: I had a detailed discussion with the patient and/or guardian regarding: the historical points, exam findings, and any diagnostic results supporting the discharge/admit diagnosis, lab results, the need to transfer to another facility, for higher level of care, [facility] does not immediately have the required specialist. 02/09 14:20 Order name: Basic Metabolic Panel 02/09 14:20 Order name: CBC with Diff; Complete Time: 14:59 02/09 14:20 Order name: LFT's; Complete Time: 15:49 02/09 14:20 Order name: Magnesium; Complete Time: 15:49 02/09 14:20 Order name: NT PRO-BNP; Complete Time: 15:49 02/09 14:20 Order name: PT-INR; Complete Time: 14:59 02/09 14:20 Order name: Troponin HS; Complete Time: 15:49 02/09 14:20 Order name: Blood Culture Adult (2) 02/09 14:20 Order name: CMP; Complete Time: 15:49 02/09 14:20 Order name: Lactate w/ 2H reflex if indic.; Complete Time: 16:12 02/09 14:20 Order name: Ptt, Activated; Complete Time: 14:59 02/09 14:20 Order name: Urine Culture 02/09 14:20 Order name: Urine Microscopic Only; Complete Time: 15:41 02/09 14:20 Order name: ABG 02/09 14:20 Order name: XRAY Chest (1 view); Complete Time: 15:41 02/09 14:23 Order name: Glucose, Ancillary Testing; Complete Time: 14:59 [facility] 02/09 14:59 Order name: TSH [facility] 02/09 15:00 Order name: CXR XRAY; Complete Time: 15:41 02/09 15:01 Order name: Urine Dipstick-Ancillary; Complete Time: 15:01 [facility] 02/09 15:01 Order name: CT Traumagram (Head C Spine CAP wo con); Complete Time: 16:12 [facility] 02/09 15:24 Order name: COVID-19/FLU A+B [facility] 02/09 17:13 Order name: T4 Free EDVT 02/09 14:20 Order name: EKG; Complete Time: 14:21 02/09 14:20 Order name: Cardiac monitoring; Complete Time: 14:42 02/09 14:20 Order name: EKG - Nurse/Tech; Complete Time: 14:42 02/09 14:20 Order name: IV Saline Lock; Complete Time: 14:42 02/09 14:20 Order name: Labs collected and sent; Complete Time: 14:42 02/09 14:20 Order name: O2 Per Protocol; Complete Time: 14:42 02/09 14:20 Order name: O2 Sat Monitoring; Complete Time: 14:42 02/09 14:20 Order name: Accucheck; Complete Time: 14:42 02/09 14:20 Order name: IV Saline Lock - Large Bore; Complete Time: 14:42 02/09 14:20 Order name: Vital Signs; Complete Time: 14:42 02/09 15:11 Order name: Veronica; Complete Time: 15:49 tod EC:29 Rate is 146 beats/min. Rhythm is irregularly irregular. MT interval is normal. QRS tod interval is normal. QT interval is normal. T waves are Normal. No ST changes noted. Clinical impression: Atrial Fibrillation. Interpreted by me. Reviewed by me. 15:32 Rate is 99 beats/min. Rhythm is irregularly irregular. QRS [place] is Normal. MT interval tod is normal. QRS interval is normal. QT interval is normal. No Q waves. T waves are Normal. No ST changes noted. Clinical impression: Atrial Fibrillation. Interpreted by me. Reviewed by me. Administered Medications: 14:11 Drug: Etomidate 20 mg Route: IVP; Site: left antecubital; ss 15:00 Follow up: Response: No adverse reaction jd3 14:11 Drug: Midazolam 4 mg Route: IVP; Site: left antecubital; ss 15:00 Follow up: Response: No adverse reaction jd3 14:12 Drug: Succinylcholine 120 mg Route: IVP; Site: left antecubital; ss 15:00 Follow up: Response: No adverse reaction jd3 14:25 Drug: Midazolam 4 mg {Note: Administered by Laurel Armenta RN.} Route: IVP; Site: left ss antecubital; 15:00 Follow up: Response: No adverse reaction jd3 14:30 Drug: Propofol 5 mcg/kg/min Route: IV; Rate: calculated rate; Site: left antecubital; jd3 14:35 Follow up: Response: RASS: Alert and Calm (0); Rate change 7 mcg/kg/min jd3 14:40 Follow up: Response: RASS: Alert and Calm (0); Rate change 9 mcg/kg/min jd3 14:45 Follow up: Response: RASS: Alert and Calm (0); Rate change 11 mcg/kg/min jd3 14:50 Follow up: Response: RASS: Alert and Calm (0); Rate change 13 mcg/kg/min jd3 14:55 Follow up: Response: RASS: Alert and Calm (0); Rate change 15 mcg/kg/min jd3 15:00 Follow up: Response: RASS: Alert and Calm (0); Rate change 17 mcg/kg/min jd3 15:05 Follow up: Response: RASS: Alert and Calm (0); Rate change 19 mcg/kg/min jd3 15:10 Follow up: Response: RASS: Alert and Calm (0); Rate change 21 mcg/kg/min jd3 15:15 Follow up: Response: RASS: Drowsy (-1); Rate change 23 mcg/kg/min jd3 15:20 Follow up: Response: RASS: Light sedation (-2); Rate change 25 mcg/kg/min jd3 18:00 Follow up: Response: RASS: Light sedation (-2); IV Status: Infusion continued upon jd3 transfer 15:20 Drug: SOLU-Medrol (methylPrednisoLONE) 125 mg Route: IVP; Site: right hand; jd3 16:20 Follow up: Response: No adverse reaction jd3 15:21 Drug: ProTONIX (pantoprazole) 40 mg Route: IVP; Site: right hand; jd3 16:00 Follow up: Response: No adverse reaction jd3 15:21 Drug: Midazolam 4 mg Route: IVP; Site: right hand; jd3 16:20 Follow up: Response: No adverse reaction jd3 16:21 Drug: Meropenem 1 grams Route: IV; Rate: per protocol; Site: right hand; jd3 17:00 Follow up: Response: No adverse reaction; IV Status: Completed infusion jd3 16:45 Drug: NS 0.9% 500 ml Route: IV; Rate: bolus; Site: right hand; kc6 17:45 Follow up: Response: No adverse reaction; IV Status: Completed infusion jd3 17:17 Drug: NS 0.9% 1000 ml Route: IV; Rate: 125 ml/hr; Site: left antecubital; jd3 18:00 Follow up: Response: No adverse reaction; IV Status: Infusion continued upon transfer jd3 Disposition Summary: 11/20/22 15:37 Transfer Ordered Transfer Location: [facility] tod Reason: Higher level of care tod Condition: Serious tod Problem: new tod Symptoms: have improved tod Accepting Physician: Dr. López/ [facility](02/09/22 18:02) jd3 Diagnosis - Acute respiratory failure - INTUBATED tod - Persistent atrial fibrillation - with RVR tdo - Obesity, unspecified tod - senior care (current) use of anticoagulants tod - Unspecified combined systolic (congestive) and diastolic (congestive) heart failure tod - Malignant neoplasm of left kidney, except renal pelvis - renal cell cancer tod Forms: - Medication Reconciliation Form tod - SBAR form tod Signatures: Dispatcher [employer] EDElton Lynn MD MD cha Smirch, Shelby, RN RN Patty Arroyo RN RN Diallo Mendes RN RN jLinda Ruvalcaba Kaitlyn RN RN [id number] Corrections: (The following items were deleted from the chart) 15:46 15:37 to [facility] tod tod 15:56 15:46 to [facility] tod tod 17:27 15:56 to [facility] tod eb 18:02 17:27 Dr. López/ [facility] eb jd3
--- NOTE | 2022-02-09 15:38 | RAD REPORT ---
EXAM DESCRIPTION: RAD - Chest Single View - 02/09/2022 3:31 pm CLINICAL HISTORY: tube placement Chest pain. COMPARISON: Chest Single View dated 02/09/2022; Chest Single View dated 06/18/2020; Chest Single View dated 04/06/2018; CHEST SINGLE VIEW dated 10/19/2013 FINDINGS: Portable technique limits examination quality. Tip of the enteric tube likely within the stomach.
--- NOTE | 2022-02-09 15:38 | RAD REPORT ---
EXAM DESCRIPTION: RAD - Chest Single View - 02/09/2022 3:31 pm CLINICAL HISTORY: cpr Chest pain. COMPARISON: Chest Single View dated 06/18/2020; Chest Single View dated 04/06/2018; CHEST SINGLE VIEW dated 10/19/2013; CHEST SINGLE VIEW dated 10/19/2013 FINDINGS: Portable technique limits examination quality. Tip of the endotracheal tube is above the jairo. Enteric tube descends into the stomach. Mild to mod erate bilateral pulmonary opacities are present likely pulmonary edema. The heart is moderately enlar ged.
[2022-02-09 15:48] LABS: Bilirubin Direct 0.7 mg/dL (0-0.2); Bilirubin Total 2.3 mg/dL (0.2-1.0); Magnesium 1.8 mg/dL (1.8-2.4); Potassium 4.3 mmol/L (3.5-5.1); Protein, Total 7.4 g/dL (6.4-8.2); Troponin High Sensitivity 8.4 pg/mL (<58.9)
[2022-02-09] MEDS ORDERED: RSI MEDICATION KIT IV ONE (15:53)
--- NOTE | 2022-02-09 15:53 | RAD REPORT ---
EXAM DESCRIPTION: CT - Head C Spine Cap Wo Con - 02/09/2022 3:37 pm CLINICAL HISTORY: Trauma, head and neck injury. Chest, abdomen and pelvis pain. unresponsive COMPARISON: No comparisons TECHNIQUE: CT head without contrast. CT cervical spine without contrast with coronal and sagittal reformatted images. CT chest, abdomen and pelvis without contrast with coronal and sagittal reformatted images of the [facility] [place]. All CT scans are performed using dose optimization technique as appropriate and may include automated exposure control or mA/KV adjustment according to patient size. FINDINGS: CT HEAD WITHOUT CONTRAST: No intracranial hemorrhage, hydrocephalus or extra-axial fluid collection. No areas of brain edema o r midline shift. Dilated venous structures seen in both orbits. The paranasal sinuses and mastoids are clear. The calvarium is intact. CT CERVICAL SPINE WITHOUT CONTRAST: No fracture or subluxation. Wiring is present in the posterior elements lower cervical spine. Enteric tube and endotracheal tube is noted. The prevertebral soft tissues are normal in thickness. CT CHEST, ABDOMEN, PELVIS WITHOUT CONTRAST: NOTE: Lack of contrast is a significant limitation in the assessment of trauma related findings. Spec ifically, solid organ, vascular and bowel evaluation is significantly limited. Large lung consolidations are present in both posteroinferior lungs which may represent pneumonia or pulmonary edema.Small bilateral pleural effusions. There is an irregular 8 cm mass suspected lateral left kidney. This is likely renal cell carcinoma. No concerning pelvic findings. No fractures. IMPRESSION: Large areas of lung consolidation in both posteroinferior lung mittal likely represent p neumonia or pulmonary edema. Large 8 cm mass present involving the left kidney likely representing renal cell carcinoma.
[2022-02-09] MEDS ORDERED: PANTOPRAZOLE 40 MG INJ ONE (15:54)
[2022-02-09] MEDS ORDERED: NA CHLORIDE 0.9% 100 ML IV ONE (15:54)
[2022-02-09] MEDS ORDERED: Meropenem 1000 MG/VIAL IV ONE (15:54)
[2022-02-09] MEDS ORDERED: METHYLPREDNISOLONE 125 MG INJ ONE (15:54)
[2022-02-09] MEDS ORDERED: NA CHLORIDE 0.9% 500 ML ONE (16:34)
[2022-02-09 16:53] LABS: Arterial Blood Carboxyhemoglob 1.2 % (0-1.5); Blood Gas Oxyhemoglobin 93.6 % (94-97); Blood O2 Saturation 95.9 % (92-98.5)
[2022-02-09 17:04] LABS: SARS-COV-2 RT PCR NEGATIVE (NEGATIVE)
[2022-02-09 17:10] LABS: Thyroid Stimulating Hormone 5.73 uIU/mL (0.360-3.740)
[2022-02-09] MEDS ORDERED: NA CHLORIDE 0.9% 1,000 ML ONE (17:14)
[2022-02-09 18:12] VITALS: TEMP 97.5
[2022-02-09 18:17] VITALS: BP 114/77; O2SAT 100
--- NOTE | 2022-02-10 15:31 | EKG ---
Test Date: 2022-02-09 Test Time: 14:50:46 Digitizer: [place] MEASUREMENT RESULTS: Intervals: Rate: 99 AL: QRSD: 90 QT: 386 QTc: 495 [place]: P: AL: QRS: 39 T: 77 INTERPRETIVE STATEMENTS: Atrial fibrillation Nonspecific ST and T wave abnormality Prolonged QT Abnormal ECG Compared to ECG 02/09/2022 13:59:12 Prolonged QT interval now present Possible ischemia no longer present ST (T wave) deviation still present Electronically Signed On 02-10-22 15:28:26 [employer]CH SERVICE LEADER by Josiah Mclean
--- NOTE | 2022-02-10 15:31 | EKG ---
Test Date: 2022-02-09 Test Time: 13:59:12 Tassel Maker: [place] MEASUREMENT RESULTS: Intervals: Rate: 146 OR: QRSD: 86 QT: 312 QTc: 486 [place]: P: OR: QRS: -27 T: 49 INTERPRETIVE STATEMENTS: Atrial fibrillation with rapid ventricular response Low voltage QRS ST & T wave abnormality, consider anterolateral ischemia Abnormal ECG Compared to ECG 06/18/2020 12:39:44 Low QRS voltage now present ST (T wave) deviation now present Possible ischemia now present Electronically Signed On 02-10-22 15:28:33 DEPUTY SHERIFF LIEUTENANT by Josiah Mclean
== END 2022-02-09 18:02 | disposition short-term general hospital (02) ==
LOC: ER 13:48
PROC: 06HM33Z Insertion of Infusion Device into Right Femoral Vein, Percutaneous Approach (ICD-10-PCS; principal; 2022-02-09)
DX: J96.00 Acute respiratory failure, unspecified whether with hypoxia or hypercapnia (principal); I50.40 Unspecified combined systolic (congestive) and diastolic (congestive) heart failure; I48.19 Other persistent atrial fibrillation; Z79.01 Long term (current) use of anticoagulants; C64.9 Malignant neoplasm of unspecified kidney, except renal pelvis; E66.9 Obesity, unspecified; I10 Essential (primary) hypertension; E11.9 Type 2 diabetes mellitus without complications; Z20.822 Contact with and (suspected) exposure to COVID-19; Z88.0 Allergy status to penicillin; Z88.8 Allergy status to other drugs, medicaments and biological substances
CPT/HCPCS: 93005 ×2; 87040 ×2; 87088; 85025; 87086; 36415; 83735; 87205 ×2; 85610; 82947; 80076; 83605; 85730; 84443; 84484; 84439; 80053; 83880; 0240U; 70450; 71250; 72125; 71045 ×2; 94002; 82805; 94003; 31500; 51702; 92950; 99291; 99292; 36556; J0330; J2704 ×2; C9113; J2250 ×3; J2185; J7040; J7030; J2930; 81003; 81015